=== PATIENT | male | born 1940 | race Caucasian/White ===

== ENCOUNTER → 2024-01-10 11:31 | Outpatient (REF) | payer MEDICARE, OTHER, SELFPAY | LOC: RAD 11:31 | PROVIDERS: ATTENDING PHYSICIAN Internal Medicine | DX: I88.9 Nonspecific lymphadenitis, unspecified (principal) | CPT/HCPCS: 71046 ==

== ENCOUNTER → 2024-03-29 11:31 | Outpatient (REF) | payer MEDICARE, OTHER, SELFPAY | LOC: HWRAD 11:31 | PROVIDERS: ATTENDING PHYSICIAN Internal Medicine | DX: I88.9 Nonspecific lymphadenitis, unspecified (principal) | CPT/HCPCS: 71046 ==

== ENCOUNTER → 2025-01-11 10:27 | Outpatient (REF) | payer MEDICARE, OTHER, SELFPAY ==
[2025-01-11 12:52] LABS: PSA, Total - Diagnostic 6.78 ng/ml (0.0-4.0)
== END ==
LOC: REG 10:27
PROVIDERS: ATTENDING PHYSICIAN Specialist; FAMILY PHYSICIAN Internal Medicine
DX: N40.2 Nodular prostate without lower urinary tract symptoms (principal)
CPT/HCPCS: 36415; 84153

== ENCOUNTER → 2025-04-01 11:20 | Outpatient (REF) | payer MEDICARE, OTHER, SELFPAY | LOC: RAD 11:20 | PROVIDERS: ATTENDING PHYSICIAN Internal Medicine | DX: R22.1 Localized swelling, mass and lump, neck (principal) | CPT/HCPCS: 71046 ==

== ENCOUNTER → 2025-04-04 12:34 | Outpatient (REF) | payer MEDICARE, OTHER, SELFPAY | LOC: HWRAD 12:34 | PROVIDERS: ATTENDING PHYSICIAN Internal Medicine | DX: R22.1 Localized swelling, mass and lump, neck (principal); L04.0 Acute lymphadenitis of face, head and neck | CPT/HCPCS: 76536 ==

== ENCOUNTER → 2025-04-09 10:42 | Outpatient (REF) | payer MEDICARE, OTHER, SELFPAY ==
[2025-04-09 11:49] LABS: % Basophils 0.8 % (0-2); % Eosinophils 3.5 % (0-6); % Immature Granulocytes 0.4 % (0-0.5); % Lymphocytes 18.1 % (20.5-51.1); % Neutrophils 68.2 % (42.2-75.2); Absolute Basophils 0.1 10^3/uL (0-0.2); Absolute Eosinophils 0.3 10^3/uL (0-0.7); Absolute Lymphocytes 1.6 10^3/uL (1.2-3.4); Absolute Monocytes 0.8 10^3/uL (0.1-0.6); Absolute Neutrophils 5.8 10^3/uL (1.4-6.5); Hematocrit 46.2 % (39.0-52.0); Hemoglobin 15.2 g/dL (13.0-18.0); Mean Corp Hgb Conc. 32.9 g/dL (33.0-37.0); Mean Corpuscular Hgb 29.9 pg (27.0-31.0); Mean Corpuscular Volume 90.9 fL (80.0-94.0); Nucleated Red Blood Cells % 0 % (-); Platelet Count 192 10^3/uL (130-400); Red Blood Cell Count 5.08 10^6/uL (4.70-6.10); Red Cell Dist. Width 13.9 % (11.5-14.5); White Blood Cell Count 8.6 10^3/uL (4.8-10.8)
[2025-04-09 12:31] LABS: ALT (SGPT) 18 U/L (0-50); AST (SGOT) 23 U/L (17-59); Albumin 4.3 g/dl (3.5-5.0); Alkaline Phosphatase 75 U/L (38-126); Blood Urea Nitrogen 21 mg/dl (9-20); Calcium 9.9 mg/dl (8.4-10.2); Carbon Dioxide 31 mmol/L (22-30); Chloride 104 mmol/L (98-107); Glucose 101 mg/dl (70-99); HDL Cholesterol 49 mg/dl; LDL Cholesterol, Calculated 90 mg/dl; Potassium 4.2 mmol/L (3.5-5.1); Sodium 141 mmol/L (135-145); Total Bilirubin 1.1 mg/dl (0.2-1.3); Total Cholesterol 156 mg/dl (50-199); Total Protein 6.6 g/dl (6.3-8.2); Triglyceride 85 mg/dl (10-149); Very Low Density Lipoprotein 17 mg/dl (0-30); eGFR > 60.00
== END ==
LOC: RAD 10:42
PROVIDERS: ATTENDING PHYSICIAN Internal Medicine
DX: R22.1 Localized swelling, mass and lump, neck (principal); R59.1 Generalized enlarged lymph nodes; K21.9 Gastro-esophageal reflux disease without esophagitis; R59.0 Localized enlarged lymph nodes; R93.89 Abnormal findings on diagnostic imaging of other specified body structures; Z00.01 Encounter for general adult medical examination with abnormal findings; E78.5 Hyperlipidemia, unspecified; I10 Essential (primary) hypertension; I25.9 Chronic ischemic heart disease, unspecified; Z68.33 Body mass index [BMI] 33.0-33.9, adult
CPT/HCPCS: 36415; 74177; 80053; 80061; 85025; Q9967

== ENCOUNTER → 2025-04-10 09:49 | Outpatient (REF) | payer MEDICARE, OTHER, SELFPAY | LOC: RAD 09:49 | PROVIDERS: ATTENDING PHYSICIAN Internal Medicine | DX: R22.1 Localized swelling, mass and lump, neck (principal); R59.1 Generalized enlarged lymph nodes; K21.9 Gastro-esophageal reflux disease without esophagitis | CPT/HCPCS: 70491; 71260; Q9967 ==

== ENCOUNTER 2025-05-02 06:02 | Day surgery (SDC) | payer MEDICARE, OTHER, SELFPAY ==
[2025-04-24 13:28] VITALS: BMI 31.7
[2025-05-02] VITALS (9 sets, daily range): BP systolic 97–140; BP diastolic 47–85; BMI 31.7
[2025-05-02] MEDS: NORMOSOL-R/PLASMALYTE-A 1000 IV (06:37)
== END 2025-05-02 12:00 | disposition home or self-care (01) ==
LOC: SDS 06:02
PROVIDERS: ATTENDING PHYSICIAN Otolaryngology
DX: K14.9 Disease of tongue, unspecified (principal); K11.21 Acute sialoadenitis; R59.0 Localized enlarged lymph nodes; C81.41 Lymphocyte-rich Hodgkin lymphoma, lymph nodes of head, face, and neck; D10.1 Benign neoplasm of tongue
CPT/HCPCS: 38510; 31535; 88305; 88332; 88331; 88342; 88365

== ENCOUNTER → 2025-05-27 12:11 | Outpatient (REF) | payer MEDICARE, OTHER, SELFPAY ==
[2025-05-27 13:11] LABS: Hematocrit 43.2 % (39.0-52.0); Hemoglobin 14.3 g/dL (13.0-18.0); Mean Corp Hgb Conc. 33.1 g/dL (33.0-37.0); Mean Corpuscular Volume 89.6 fL (80.0-94.0); Nucleated Red Blood Cells % 0 % (-); Platelet Count 216 10^3/uL (130-400); Red Cell Dist. Width 13.3 % (11.5-14.5)
[2025-05-27 13:57] LABS: ALT (SGPT) 20 U/L (0-50); AST (SGOT) 24 U/L (17-59); Albumin 4.0 g/dl (3.5-5.0); Alkaline Phosphatase 92 U/L (38-126); Total Protein 6.2 g/dl (6.3-8.2)
[2025-05-27 15:09] LABS: LDH 86 U/L (120-246)
[2025-05-28 02:10] LABS: Hepatitis B Surface Antigen Negative (Negative)
== END ==
LOC: REG 12:11
PROVIDERS: ATTENDING PHYSICIAN Internal Medicine Hematology & Oncology; FAMILY PHYSICIAN Internal Medicine
DX: C81.48 Lymphocyte-rich Hodgkin lymphoma, lymph nodes of multiple sites (principal)
CPT/HCPCS: 36415; 80076; 83615; 85025; 86704; 86706; 87340

== ENCOUNTER → 2025-05-31 09:54 | Outpatient (REF) | payer MEDICARE, OTHER, SELFPAY ==
--- NOTE | 2025-05-31 11:51 | CARDSERVLU ---
Echocardiogram with Lumason completed after protocol screening completed. Allergies verified.
Patent IV site: _left AC____
IV site flushed with 0.9% NaCl pre and post administration.
Diluted bolus method utilized to enhance visualization of ventricular castro.
Total volume given: 3.0____ mL
Patient tolerated all procedures well without complications.
#20 freida placed Left AC. Lumason given. INT d/c'd. pressure held. No bleeding noted.
== END ==
LOC: RCS 09:54
PROVIDERS: ATTENDING PHYSICIAN Internal Medicine Cardiovascular Disease; FAMILY PHYSICIAN Internal Medicine
DX: I25.9 Chronic ischemic heart disease, unspecified (principal)
CPT/HCPCS: 93306; Q9950

== ENCOUNTER → 2025-06-13 10:44 | Outpatient (REF) | payer MEDICARE, OTHER, SELFPAY | LOC: RSP 10:44 | PROVIDERS: ATTENDING PHYSICIAN Internal Medicine Hematology & Oncology; FAMILY PHYSICIAN Internal Medicine | DX: C81.48 Lymphocyte-rich Hodgkin lymphoma, lymph nodes of multiple sites (principal); R06.02 Shortness of breath | CPT/HCPCS: 88738; 94010; 94727; 94729 ==

== ENCOUNTER → 2025-06-21 07:56 | Outpatient (REF) | payer MEDICARE, OTHER, SELFPAY ==
[2025-06-21 08:45] VITALS: BP 134/83; BP_SYST 65
[2025-06-21] MEDS: ANCEF 10 IV (09:08)
[2025-06-21 10:25] VITALS: BP 127/74
[2025-06-21 10:30] VITALS: BP 113/79
[2025-06-21 10:35] VITALS: BP 122/79
[2025-06-21 10:45] VITALS: BP 121/71
[2025-06-21 11:00] VITALS: BP 126/76
== END ==
LOC: RADI 07:56
PROVIDERS: ATTENDING PHYSICIAN Internal Medicine Hematology & Oncology; FAMILY PHYSICIAN Internal Medicine
DX: C81.48 Lymphocyte-rich Hodgkin lymphoma, lymph nodes of multiple sites (principal)
CPT/HCPCS: 36561; 76937; 77001; 99152; 99153; C1788

== ENCOUNTER → 2025-06-24 08:01 | Outpatient (REF) | payer MEDICARE, OTHER, SELFPAY ==
[2025-06-24 09:24] LABS: Hematocrit 46.3 % (39.0-52.0); Hemoglobin 15.0 g/dL (13.0-18.0); Mean Corp Hgb Conc. 32.4 g/dL (33.0-37.0); Mean Corpuscular Volume 90.6 fL (80.0-94.0); Nucleated Red Blood Cells % 0 % (-); Platelet Count 183 10^3/uL (130-400); Red Cell Dist. Width 14.2 % (11.5-14.5)
[2025-06-24 10:27] LABS: ALT (SGPT) 19 U/L (0-50); AST (SGOT) 25 U/L (17-59); Albumin 4.1 g/dl (3.5-5.0); Alkaline Phosphatase 99 U/L (38-126); Blood Urea Nitrogen 16 mg/dl (9-20); Calcium 9.9 mg/dl (8.4-10.2); Carbon Dioxide 29 mmol/L (22-30); Chloride 102 mmol/L (98-107); Glucose 100 mg/dl (70-99); Potassium 4.6 mmol/L (3.5-5.1); Sodium 138 mmol/L (135-145); Total Protein 6.5 g/dl (6.3-8.2); Uric Acid 5.4 mg/dl (3.5-8.5); eGFR > 60.00
== END ==
LOC: REG 08:01
PROVIDERS: ATTENDING PHYSICIAN Internal Medicine Hematology & Oncology; FAMILY PHYSICIAN Internal Medicine
DX: C81.48 Lymphocyte-rich Hodgkin lymphoma, lymph nodes of multiple sites (principal)
CPT/HCPCS: 36415; 80053; 84550; 85025; 85652

== ENCOUNTER → 2025-07-01 10:38 | Outpatient (REF) | payer MEDICARE, OTHER, SELFPAY ==
[2025-07-01 11:35] LABS: Hematocrit 43.1 % (39.0-52.0); Hemoglobin 14.0 g/dL (13.0-18.0); Mean Corp Hgb Conc. 32.5 g/dL (33.0-37.0); Mean Corpuscular Volume 89.8 fL (80.0-94.0); Nucleated Red Blood Cells % 0 % (-); Platelet Count 141 10^3/uL (130-400); Red Cell Dist. Width 13.5 % (11.5-14.5)
[2025-07-01 11:56] LABS: ALT (SGPT) 34 U/L (0-50); AST (SGOT) 27 U/L (17-59); Albumin 3.9 g/dl (3.5-5.0); Alkaline Phosphatase 82 U/L (38-126); Blood Urea Nitrogen 24 mg/dl (9-20); Calcium 9.7 mg/dl (8.4-10.2); Carbon Dioxide 30 mmol/L (22-30); Chloride 97 mmol/L (98-107); Glucose 146 mg/dl (70-99); Potassium 4.3 mmol/L (3.5-5.1); Sodium 134 mmol/L (135-145); Total Protein 6.2 g/dl (6.3-8.2); eGFR > 60.00
== END ==
LOC: REG 10:38
PROVIDERS: ATTENDING PHYSICIAN Internal Medicine Hematology & Oncology; FAMILY PHYSICIAN Internal Medicine
DX: C81.48 Lymphocyte-rich Hodgkin lymphoma, lymph nodes of multiple sites (principal)
CPT/HCPCS: 36415; 80053; 85025

== ENCOUNTER → 2025-07-08 07:32 | Outpatient (REF) | payer MEDICARE, OTHER, SELFPAY ==
[2025-07-08 08:48] LABS: Hematocrit 39.0 % (39.0-52.0); Hemoglobin 13.0 g/dL (13.0-18.0); Mean Corp Hgb Conc. 33.3 g/dL (33.0-37.0); Mean Corpuscular Volume 89.2 fL (80.0-94.0); Platelet Count 208 10^3/uL (130-400); Red Cell Dist. Width 13.7 % (11.5-14.5)
[2025-07-08 09:54] LABS: Nucleated Red Blood Cells % 0 % (-)
== END ==
LOC: REG 07:32
PROVIDERS: ATTENDING PHYSICIAN Internal Medicine Hematology & Oncology
DX: C81.48 Lymphocyte-rich Hodgkin lymphoma, lymph nodes of multiple sites (principal)
CPT/HCPCS: 36415; 85025

== ENCOUNTER → 2025-07-16 09:50 | Outpatient (REF) | payer MEDICARE, OTHER, SELFPAY ==
[2025-07-16 10:35] LABS: Hematocrit 38.6 % (39.0-52.0); Hemoglobin 12.8 g/dL (13.0-18.0); Mean Corp Hgb Conc. 33.2 g/dL (33.0-37.0); Mean Corpuscular Volume 89.8 fL (80.0-94.0); Nucleated Red Blood Cells % 0 % (-); Platelet Count 217 10^3/uL (130-400); Red Cell Dist. Width 13.6 % (11.5-14.5)
[2025-07-16 11:10] LABS: ALT (SGPT) 24 U/L (0-50); AST (SGOT) 22 U/L (17-59); Albumin 3.8 g/dl (3.5-5.0); Alkaline Phosphatase 75 U/L (38-126); Blood Urea Nitrogen 17 mg/dl (9-20); Calcium 9.5 mg/dl (8.4-10.2); Carbon Dioxide 36 mmol/L (22-30); Chloride 95 mmol/L (98-107); Glucose 117 mg/dl (70-99); Potassium 3.9 mmol/L (3.5-5.1); Sodium 134 mmol/L (135-145); Total Protein 5.9 g/dl (6.3-8.2); eGFR > 60.00
== END ==
LOC: REG 09:50
PROVIDERS: ATTENDING PHYSICIAN Internal Medicine Hematology & Oncology; FAMILY PHYSICIAN Internal Medicine
DX: C81.48 Lymphocyte-rich Hodgkin lymphoma, lymph nodes of multiple sites (principal)
CPT/HCPCS: 36415; 80053; 85025

== ENCOUNTER → 2025-07-22 09:10 | Outpatient (REF) | payer MEDICARE, OTHER, SELFPAY ==
[2025-07-22 11:39] LABS: Hematocrit 39.7 % (39.0-52.0); Hemoglobin 13.5 g/dL (13.0-18.0); Mean Corp Hgb Conc. 34.0 g/dL (33.0-37.0); Mean Corpuscular Volume 89.6 fL (80.0-94.0); Platelet Count 269 10^3/uL (130-400); Red Cell Dist. Width 14.1 % (11.5-14.5)
[2025-07-22 12:01] LABS: Nucleated Red Blood Cells % 0 % (-)
== END ==
LOC: REG 09:10
PROVIDERS: ATTENDING PHYSICIAN Internal Medicine Hematology & Oncology; FAMILY PHYSICIAN Internal Medicine
DX: C81.48 Lymphocyte-rich Hodgkin lymphoma, lymph nodes of multiple sites (principal)
CPT/HCPCS: 36415; 85025

== ENCOUNTER → 2025-07-29 10:55 | Outpatient (REF) | payer MEDICARE, OTHER, SELFPAY ==
[2025-07-29 11:37] LABS: Hematocrit 38.0 % (39.0-52.0); Hemoglobin 13.0 g/dL (13.0-18.0); Mean Corp Hgb Conc. 34.2 g/dL (33.0-37.0); Mean Corpuscular Volume 86.6 fL (80.0-94.0); Nucleated Red Blood Cells % 0 % (-); Platelet Count 182 10^3/uL (130-400); Red Cell Dist. Width 14.6 % (11.5-14.5)
[2025-07-29 12:38] LABS: ALT (SGPT) 22 U/L (0-50); AST (SGOT) 22 U/L (17-59); Albumin 3.8 g/dl (3.5-5.0); Alkaline Phosphatase 69 U/L (38-126); Blood Urea Nitrogen 21 mg/dl (9-20); Calcium 9.8 mg/dl (8.4-10.2); Carbon Dioxide 34 mmol/L (22-30); Chloride 95 mmol/L (98-107); Glucose 116 mg/dl (70-99); Potassium 3.8 mmol/L (3.5-5.1); Sodium 133 mmol/L (135-145); Total Protein 6.0 g/dl (6.3-8.2); eGFR > 60.00
== END ==
LOC: REG 10:55
PROVIDERS: ATTENDING PHYSICIAN Internal Medicine Hematology & Oncology; FAMILY PHYSICIAN Internal Medicine
DX: C81.48 Lymphocyte-rich Hodgkin lymphoma, lymph nodes of multiple sites (principal)
CPT/HCPCS: 36415; 80053; 85025

== ENCOUNTER → 2025-08-05 08:36 | Outpatient (REF) | payer MEDICARE, OTHER, SELFPAY ==
[2025-08-05 09:20] LABS: Hematocrit 38.1 % (39.0-52.0); Hemoglobin 13.1 g/dL (13.0-18.0); Mean Corp Hgb Conc. 34.4 g/dL (33.0-37.0); Mean Corpuscular Volume 89.4 fL (80.0-94.0); Nucleated Red Blood Cells % 0 % (-); Platelet Count 252 10^3/uL (130-400); Red Cell Dist. Width 15.2 % (11.5-14.5)
== END ==
LOC: REG 08:36
PROVIDERS: ATTENDING PHYSICIAN Internal Medicine Hematology & Oncology; FAMILY PHYSICIAN Internal Medicine
DX: C81.48 Lymphocyte-rich Hodgkin lymphoma, lymph nodes of multiple sites (principal)
CPT/HCPCS: 36415; 85025

== ENCOUNTER → 2025-08-06 09:23 | Outpatient (REF) | payer MEDICARE, OTHER, SELFPAY ==
[2025-08-06 10:33] LABS: ALT (SGPT) 21 U/L (0-50); AST (SGOT) 24 U/L (17-59); Albumin 3.7 g/dl (3.5-5.0); Alkaline Phosphatase 70 U/L (38-126); Blood Urea Nitrogen 15 mg/dl (9-20); Calcium 9.6 mg/dl (8.4-10.2); Carbon Dioxide 31 mmol/L (22-30); Chloride 99 mmol/L (98-107); Glucose 138 mg/dl (70-99); Potassium 3.8 mmol/L (3.5-5.1); Sodium 134 mmol/L (135-145); Total Protein 5.9 g/dl (6.3-8.2); eGFR > 60.00
== END ==
LOC: OIDL 09:23
PROVIDERS: ATTENDING PHYSICIAN Internal Medicine Hematology & Oncology
DX: C81.48 Lymphocyte-rich Hodgkin lymphoma, lymph nodes of multiple sites (principal)
CPT/HCPCS: 80053

== ENCOUNTER → 2025-08-12 13:21 | Outpatient (REF) | payer MEDICARE, OTHER, SELFPAY ==
[2025-08-12 14:57] LABS: Hematocrit 38.0 % (39.0-52.0); Hemoglobin 13.0 g/dL (13.0-18.0); Mean Corp Hgb Conc. 34.2 g/dL (33.0-37.0); Mean Corpuscular Volume 88.6 fL (80.0-94.0); Platelet Count 206 10^3/uL (130-400); Red Cell Dist. Width 14.7 % (11.5-14.5)
[2025-08-12 15:07] LABS: ALT (SGPT) 23 U/L (0-50); AST (SGOT) 23 U/L (17-59); Albumin 4.0 g/dl (3.5-5.0); Alkaline Phosphatase 74 U/L (38-126); Blood Urea Nitrogen 20 mg/dl (9-20); Calcium 9.8 mg/dl (8.4-10.2); Carbon Dioxide 33 mmol/L (22-30); Chloride 92 mmol/L (98-107); Glucose 85 mg/dl (70-99); Potassium 3.8 mmol/L (3.5-5.1); Sodium 131 mmol/L (135-145); Total Protein 6.2 g/dl (6.3-8.2); eGFR > 60.00
[2025-08-12 15:55] LABS: Nucleated Red Blood Cells % 0 % (-)
== END ==
LOC: REG 13:21
PROVIDERS: ATTENDING PHYSICIAN Internal Medicine Hematology & Oncology; FAMILY PHYSICIAN Internal Medicine
DX: C81.48 Lymphocyte-rich Hodgkin lymphoma, lymph nodes of multiple sites (principal)
CPT/HCPCS: 36415; 80053; 85025; 93306; 93356

== ENCOUNTER → 2025-08-14 08:09 | Outpatient (REF) | payer MEDICARE, OTHER, SELFPAY ==
[2025-08-14 08:31] LABS: Glucose 116 mg/dl (70-99)
== END ==
LOC: PET 08:09
PROVIDERS: ATTENDING PHYSICIAN Internal Medicine Hematology & Oncology
DX: C81.48 Lymphocyte-rich Hodgkin lymphoma, lymph nodes of multiple sites (principal)
CPT/HCPCS: 36415; 82947

== ENCOUNTER → 2025-08-19 10:13 | Outpatient (REF) | payer MEDICARE, OTHER, SELFPAY ==
[2025-08-19 12:08] LABS: Hematocrit 38.3 % (39.0-52.0); Hemoglobin 12.8 g/dL (13.0-18.0); Mean Corp Hgb Conc. 33.4 g/dL (33.0-37.0); Mean Corpuscular Volume 89.1 fL (80.0-94.0); Platelet Count 251 10^3/uL (130-400); Red Cell Dist. Width 16.0 % (11.5-14.5)
[2025-08-19 12:37] LABS: ALT (SGPT) 21 U/L (0-50); AST (SGOT) 26 U/L (17-59); Albumin 4.0 g/dl (3.5-5.0); Alkaline Phosphatase 78 U/L (38-126); Blood Urea Nitrogen 16 mg/dl (9-20); Calcium 9.7 mg/dl (8.4-10.2); Carbon Dioxide 33 mmol/L (22-30); Chloride 96 mmol/L (98-107); Glucose 104 mg/dl (70-99); Potassium 3.9 mmol/L (3.5-5.1); Sodium 134 mmol/L (135-145); Total Protein 6.3 g/dl (6.3-8.2); eGFR > 60.00
[2025-08-19 13:39] LABS: Nucleated Red Blood Cells % 0 % (-)
== END ==
LOC: REG 10:13
PROVIDERS: ATTENDING PHYSICIAN Internal Medicine Hematology & Oncology; FAMILY PHYSICIAN Internal Medicine
DX: C81.48 Lymphocyte-rich Hodgkin lymphoma, lymph nodes of multiple sites (principal)
CPT/HCPCS: 36415; 80053; 85025

== ENCOUNTER → 2025-08-27 10:54 | Outpatient (REF) | payer MEDICARE, OTHER, SELFPAY ==
[2025-08-27 12:03] LABS: Hematocrit 38.8 % (39.0-52.0); Hemoglobin 12.8 g/dL (13.0-18.0); Mean Corp Hgb Conc. 33.0 g/dL (33.0-37.0); Mean Corpuscular Volume 91.9 fL (80.0-94.0); Platelet Count 223 10^3/uL (130-400); Red Cell Dist. Width 16.4 % (11.5-14.5)
[2025-08-27 13:47] LABS: Nucleated Red Blood Cells % 0 % (-)
== END ==
LOC: REG 10:54
PROVIDERS: ATTENDING PHYSICIAN Internal Medicine Hematology & Oncology; FAMILY PHYSICIAN Internal Medicine
DX: C81.48 Lymphocyte-rich Hodgkin lymphoma, lymph nodes of multiple sites (principal)
CPT/HCPCS: 36415; 85025

== ENCOUNTER → 2025-09-03 10:30 | Outpatient (REF) | payer MEDICARE, OTHER, SELFPAY ==
[2025-09-03 11:01] LABS: Hematocrit 38.1 % (39.0-52.0); Hemoglobin 12.1 g/dL (13.0-18.0); Mean Corp Hgb Conc. 31.8 g/dL (33.0-37.0); Mean Corpuscular Volume 93.6 fL (80.0-94.0); Nucleated Red Blood Cells % 0 % (-); Platelet Count 163 10^3/uL (130-400); Red Cell Dist. Width 16.8 % (11.5-14.5)
== END ==
LOC: REG 10:30
PROVIDERS: ATTENDING PHYSICIAN Internal Medicine Hematology & Oncology
DX: C81.48 Lymphocyte-rich Hodgkin lymphoma, lymph nodes of multiple sites (principal)
CPT/HCPCS: 36415; 85025

== ENCOUNTER → 2025-09-10 11:10 | Outpatient (REF) | payer MEDICARE, OTHER, SELFPAY ==
[2025-09-10 12:13] LABS: Hematocrit 40.4 % (39.0-52.0); Hemoglobin 12.9 g/dL (13.0-18.0); Mean Corp Hgb Conc. 31.9 g/dL (33.0-37.0); Mean Corpuscular Volume 94.0 fL (80.0-94.0); Nucleated Red Blood Cells % 0 % (-); Platelet Count 193 10^3/uL (130-400); Red Cell Dist. Width 16.8 % (11.5-14.5)
== END ==
LOC: REG 11:10
PROVIDERS: ATTENDING PHYSICIAN Internal Medicine Hematology & Oncology; FAMILY PHYSICIAN Internal Medicine
DX: C81.48 Lymphocyte-rich Hodgkin lymphoma, lymph nodes of multiple sites (principal)
CPT/HCPCS: 36415; 85025

== ENCOUNTER → 2025-09-12 08:55 | Outpatient (REF) | payer MEDICARE, OTHER, SELFPAY | LOC: RSP 08:55 | PROVIDERS: ATTENDING PHYSICIAN Internal Medicine Hematology & Oncology; FAMILY PHYSICIAN Internal Medicine | DX: C81.48 Lymphocyte-rich Hodgkin lymphoma, lymph nodes of multiple sites (principal) | CPT/HCPCS: 94010; 94727; 94729 ==